=== PATIENT | female | born 1980 | race Caucasian/White ===

== ENCOUNTER → 2018-12-15 | Outpatient (CLI) | payer BC ==
--- NOTE | 2018-12-15 13:25 | KCIC ---
EXAM: Chest, 2 views. HISTORY: Psoriasis medication use. COMPARISON: 07/23/2013. FINDINGS: 2 views of the chest are obtained. There is no infiltrate, pleural effusion or pneumothorax. The heart is normal in size. IMPRESSION: No acute pulmonary finding. Electronically signed by: Yun Frias MD (12/15/2018 1:23 PM) [facility]
== END | disposition home or self-care (01) ==
LOC: KCIC 09:51
PROVIDERS: ATTEND Physician Assistant
DX: L40.9 Psoriasis, unspecified (principal); Z79.52 Long term (current) use of systemic steroids
CPT/HCPCS: 71046